=== PATIENT | male | born 1945 | race Caucasian/White ===

== ENCOUNTER → 2018-06-21 | Outpatient (CLI) | payer MEDICARE, OTHER ==
[~2018-06-21] MED LIST: ACET325T9 PO; CELE200C PO; FERR325T14 PO; LISI-338 PO; OMEP20TA63 PO; TAMS0.4C97 PO
== END | disposition home or self-care (01) ==
LOC: SURGPAT 13:34
PROVIDERS: ATTEND Orthopaedic Surgery
DX: Z01.818 Encounter for other preprocedural examination (principal); M17.11 Unilateral primary osteoarthritis, right knee
CPT/HCPCS: 36415; 85651; 87641

== ENCOUNTER 2018-07-13 05:36 | Inpatient (IN) | payer MEDICARE, OTHER ==
--- NOTE | 2018-07-12 12:57 | PDOC1 ---
History and Physical Date of Admission Date of Admission DATE: 07/13/18 Identification/Chief Complaint Chief Complaint right knee osteoarthritis pain Source Source: Chart review History of Present Illness History of Present Illness The patient is a 72 y/o male with right knee pain. He states he is ready for total knee arthroplasty. He finished formal physical therapy, which helped with his pain. He states he can walk through [employer] since physical therapy, but still cannot walk for exercise. He notes he still has knee pain daily and it interferes with his daily activities. He takes Meloxicam for pain management He had dental work done in June. Past Medical History Cardiovascular: HTN, Hyperlipidemia Renal/: Benign prostatic enlarg. Past Surgical History Past Surgical History: Appendectomy Family History Family History: Heart Disease Social History Smoke: Quit (2007) ALCOHOL: occassional Drugs: None Current Medications Current Medications Current Medications Ondansetron HCl (Zofran) 4 mg PRN Q6HRS PRN IV NAUSEA/VOMITING; Start 07/13/18 at 07:00; Stop 07/13/18 at 18:00 Fentanyl Citrate (Fentanyl 2ml Vial) 25 mcg PRN Q5MIN PRN IV MILD PAIN; Start 07/13/18 at 07:00; Stop 07/13/18 at 18:00 Fentanyl Citrate (Fentanyl 2ml Vial) 50 mcg PRN Q5MIN PRN IV MODERATE TO SEVERE PAIN; Start 07/13/18 at 07:00; Stop 07/13/18 at 18:00 Morphine Sulfate (Morphine Sulfate) 1 mg PRN Q10MIN PRN IV SEVERE PAIN; Start 07/13/18 at 07:00; Stop 07/13/18 at 18:00 Ringer's Solution 1,000 ml @ 30 mls/hr Q24H IV ; Start 07/13/18 at 07:00; Stop 07/13/18 at 18:59 Lidocaine HCl (Xylocaine-Mpf 1% 2ml Vial) 2 ml PRN 1X PRN ID IV START; Start 07/13/18 at 07:00; Stop 07/13/18 at 18:00 Hydromorphone HCl (Dilaudid) 0.5 mg PRN Q10MIN PRN IV SEV PAIN, Second choice; Start 07/13/18 at 07:00; Stop 07/13/18 at 18:00 Prochlorperazine Edisylate (Compazine) 5 mg PACU PRN PRN IV NAUSEA, MRX1; Start 07/13/18 at 07:00; Stop 07/13/18 at 18:00 Active Scripts Active Reported Ferrous Sulfate 325 Mg Tablet 1 Tab PO DAILY Flomax (Tamsulosin Hcl) 0.4 Mg Cap.er.24h 0.4 Mg PO HS Lisinopril 5 Mg Tablet 5 Mg PO DAILY Prilosec Otc (Omeprazole Magnesium) 20 Mg Tablet.dr 20 Mg PO DAILY Tylenol (Acetaminophen) 325 Mg Tablet 325 Mg PO Allergies Allergies: Coded Allergies: No Known Drug Allergies (Unverified , 06/21/18) Physical Exam General: Alert, Oriented X3, Cooperative, No acute distress HEENT: Atraumatic, EOMI Lungs: Normal air movement Heart: RRR Abdomen: Soft Extremities: No clubbing, No cyanosis, Normal pulses, Other (RIGHT KNEE: There is varus alignment. No masses. No detectable effusion. Tenderness on the medial and lateral joint lines. Range of motion is 0-125 degrees. The knee is stable to varus and valgus stress without subluxation or laxity. Muscle strength is normal (5/5) for quadriceps and hamstrings, and muscle tone is normal. The skin is normal with no scars, rashes, lesions or ulcers. Trace varicose veins. Decreased light touch sensation. Dorsalis pedis pulse is intact and capillary refill is normal. ) Skin: No rashes, No breakdown, No significant lesion Neuro: Normal speech, Sensation intact Psych/Mental Status: Mental status NL, Mood NL Images Images IMAGING REPORT Joint survey, hips knees and ankles Clinical information: Preoperative for total knee arthroplasty Comparison: None. Findings Bones: The angle between the right hip-ankle mechanical axis and the femoral shaft is 5 degrees. The angle between the left hip-ankle mechanical axis and the femoral shaft is 5 degrees. From hip to ankle, the right lower extremity is in 10 degrees of varus. From hip to ankle, the left lower extremity is in 12 degrees of varus. Joints: There is severe narrowing of the right knee joint medially. There is a degenerative loose body at the medial aspect of the right knee. There is narrowing of the left knee joint medially. The hips and ankles show minimal degenerative changes. Soft tissue: Normal. Impression: Varus alignment of the right knee. Varus alignment of the left knee. The difference between the mechanical axis and femoral shaft anatomic axis is 5 degrees bilaterally. Dictated and Signed Using Voice Recognition Software Erickson Talbot MD VTE Prophylaxis Ordered VTE Prophylaxis Devices: Yes VTE Pharmacological Prophylaxi: Yes Assessment/Plan Assessment/Plan Right knee osteoarthritis pain. He would like to proceed with total knee replacement. We will send him to the [facility] preoperatively, and he will schedule at his convenience. We discussed the risks and benefits of knee replacement including bleeding, infection, post-operative stiffness, instability, xiomara-prosthetic fracture, DVT and PE. All questions were answered. He would like to proceed with the surgery to improve his pain with activity. Follow up with me 10-14 days after surgery. JM WALKER Jul 12, 2018 12:57
[~2018-07-13] VITALS: Ht 168.9 cm; Wt 123.8 kg
[2018-07-13] VITALS (8 sets, daily range): BP systolic 117–142; BP diastolic 66–84
[~2018-07-13 05:36] MED LIST changes: -CELE200C PO
[2018-07-13] MEDS ORDERED: MORPHINE SULFATE 5 MG, KETOROLAC 30MG VIAL 30 MG, ROPIVacaine 0.5% PF 60 ML, EPINEPHrin... INT ART ONE ×5 (06:00)
[2018-07-13] MEDS ORDERED: CELECOXIB 100 MG CAPSULE. PO PRN (06:00)
[2018-07-13] MEDS ORDERED: HYDROcodone/APAP 7.5/325MG 1 TAB TABLET PO PRN (06:00)
[2018-07-13] MEDS ORDERED: TRANEXAMIC ACID 1,000 MG in IV NS 50ML -- 1ST BAG INJ ONE (06:00)
[2018-07-13] MEDS ORDERED: CELE200C PO (06:18)
[2018-07-13] MEDS ORDERED: VANCOMYCIN 1 GM VIAL. ONE ×2 (06:41→09:15)
[2018-07-13] MEDS ORDERED: TOBRAMYCIN POWDER 1.2 GM VIAL. ONE (06:41)
[2018-07-13] MEDS ORDERED: PROCHLORPERAZINE 10 MG/2 ML VIAL. IV PRN ×2 (07:00→10:00)
[2018-07-13] MEDS ORDERED: LIDOCAINE 1% PF 2 ML VIAL. ID PRN (07:00)
[2018-07-13] MEDS ORDERED: MORPHINE SULFATE 2 MG/ML VIAL. IV PRN ×2 (07:00→10:00)
[2018-07-13] MEDS ORDERED: fentaNYL PF VIAL 100 MCG/2 ML VIAL IV PRN ×3 (07:00→10:00)
[2018-07-13] MEDS ORDERED: HYDROmorphone 2 MG/ML VIAL IV PRN (07:00)
[2018-07-13] MEDS ORDERED: ONDANSETRON PF 4 MG/2 ML VIAL. IV PRN (07:00)
[2018-07-13] MEDS ORDERED: IV RINGERS,LACTATED 1000ML 1,000 ML IV SCH (07:00)
[2018-07-13] MEDS ORDERED: ROCURONIUM 50 MG/5 ML VIAL. ONE (07:01)
[2018-07-13] MEDS ORDERED: LIDOCAINE 1% PF 5 ML VIAL. ONE (07:01)
[2018-07-13] MEDS ORDERED: fentaNYL PF VIAL 100 MCG/2 ML VIAL ONE ×2 (07:01→07:33)
[2018-07-13] MEDS ORDERED: PROPOFOL 20 ML IV ONE (07:01)
[2018-07-13] MEDS ORDERED: DESFLURANE 61 TO 120 MINUTES IH ONE (07:33)
[2018-07-13] MEDS ORDERED: DEXAMETHASONE SOD PHOS 20 MG/5 ML VIAL. ONE (07:33)
[2018-07-13] MEDS ORDERED: ePHEDrine PF IN SALINE 50 MG/5 ML DISP.SYRIN IV ONE (07:41)
[2018-07-13] MEDS ORDERED: TRANEXAMIC ACID 1,000 MG in IV NS 50ML -- 2ND BAG INJ ONE (08:00)
[2018-07-13] MEDS ORDERED: MORPHINE SULFATE 10 MG/ML VIAL. ONE (08:05)
[2018-07-13] MEDS ORDERED: FAMOTIDINE 20 MG/2 ML VIAL ONE (08:08)
[2018-07-13] MEDS ORDERED: NEOSTIGMINE METHYLSULFATE 5 MG/5 ML SYRINGE. ONE (08:32)
[2018-07-13] MEDS ORDERED: ONDANSETRON PF 4 MG/2 ML VIAL. ONE (08:32)
[2018-07-13] MEDS ORDERED: GLYCOPYRROLATE 1 MG/5 ML VIAL. ONE (08:32)
[2018-07-13] MEDS ORDERED: LABETALOL 20 MG/4 ML DISP.SYRIN. IVP ONE (08:41)
--- NOTE | 2018-07-13 09:43 | PDOC4 ---
Operative Note Operative Note Date of Procedure: July 13, 2018 Pre-Op Diagnosis: Osteoarthritis right knee Post-Op Diagnosis: Osteoarthritis right knee Procedure: right total knee arthroplasty Surgeon: Elizabeth Talbot MD Forepart Rounder: Ruma Miles PA-C Anesthesia: General EBL: 100 mL Specimens Obtained: right knee bone and soft tissue Complications: none Implant Company: [employer] Drains: hemovac plus pain catheter Tourniquet time: 59 Minutes Tourniquet Pressure: 350 mm Hg Indications for Procedure: Arthritis pain unrelieved by nonoperative management. Findings: Severe osteoarthritis with bone on bone contact in all three compartments, with eburnated bone medially. Implants used: Size 7 right bicruciate stabilized Journey II BCS cobalt chrome femoral component, size 6 right Journey nonporous tibial baseplate, size 5-6 21 mm right Journey II BCS XLPE constrainedarticular insert, 38 mm oval Archana II resurfacing patellar component Procedure in Detail: The patient was identified in the preoperative holding area, and the correct right lower extremity was marked by me. The patient was taken to the operating room where the patient was anesthetized by the Department of Anesthesia. Preoperative antibiotics were given intravenously. Tranexamic acid 1 g was given intravenously for intraoperative hemostasis. A "time-out" procedure was performed. The patient was positioned supine on the operative table with a tourniquet on the upper right thigh. The right lower limb was thoroughly scrubbed, then sterile surgical prep solution was applied, and the limb was draped in sterile fashion. An impervious stockinet and adhesive drape were used such that the skin was entirely covered. An Moreno leg sy was used. The operating team wore personal exhaust-ventilated hoods. The limb exsanguinated with an Esmarch bandage, and the tourniquet was inflated. A midline skin incision was made with a scalpel using the patella and tibial tubercle as landmarks. Electrocautery was used for hemostasis. My carpenter's assistant used rake retractors. A medial parapatellar arthrotomy incision was used with extension into the distal quadriceps tendon. The patella was retracted laterally and Hohmann retractors were now used by my carpenter's assistant. Excess synovium, the menisci, and the cruciate ligaments were resected sharply. The patella was assessed and excess synovium and osteophytes around the patellar articulation were removed. The patella was measured with a caliper, cut freehand with a saw using caliper measurements, sized, and then drilled for an oval three-pegged patella component. Periarticular anesthetic injection was used in the suprapatellar pouch and distal quadriceps muscle. Whitesides's line and the transepicondylar axis were marked on the femur. An intra-medullary 5 degree cutting guide was pinned to the femur, and a distal femoral cut was made with an oscillating saw. An additional 2 mm resection was used due to the deep femoral sulcus, and deficient condyle. My carpenter's assistant held Hohmann retractors and an [facility] retractor to protect the medial and lateral collateral ligaments, the patellar tendon, the skin and the other soft tissues. A posterior referencing guide was applied with external rotation of 3 to match Whitesides line. A 5-in-1 Journey II cutting guide was then applied and pinned to the femur. The posterior, anterior, and all chamfer cuts were made with the oscillating saw. An extramedullary guide was pinned to the tibia and rotational alignment and the planned resection thickness assessed. An external alignment dianna was used to verify the planned cut in the varus-valgus plane and regarding posterior slope referencing the tibial tubercle, the tibial shaft, the ankle joint, and the second metatarsal. The upper tibia was cut made with an oscillating saw. My carpenter's assistant held Hohmann retractors and a posterior cruciate ligament retractor to protect the medial and lateral collateral ligaments, the patellar tendon, the skin, the peroneal nerve and the other soft tissues. The upper tibia was sized with a trial baseplate. The posterior compartment was cleared of osteophytes and loose bodies. Periarticular anesthetic injection was used in the posterior compartment. The box cut for a posterior stabilized component was made. A preliminary reduction was performed with a trial femur, trial tibial baseplate and trial polyethylene. Soft-tissue balancing was now performed, and extension and rotation of the alignments was checked using a guide dianna in the tibial trial and a guide pin in the femur. A medial release was required, using a 10 blade scalpel, and a Irvin elevator to elevate the medial structures from the upper medial tibia. The stability was assessed using different thicknesses of tibial articular surface to find satisfactory stability and good range of motion. The rotation of the tibial component was marked on the upper tibia. Final trial reduction was now performed verifying patella tracking and tibiofemoral stability and alignment. The tibia preparation was completed with a drill, saw, and fin punch at the previously noted rotation. The final implants were verified and opened. Outer gloves were changed by the operating team. The bone cuts were washed thoroughly with the [place] InterPulse device and dried. I asked Ms. Miles to leave the room while the cement was mixed. Two packages of Rouse + Nephew Rally MV bone cement were mixed in powdered form with Vancomycin 1gm and Tobramycin 1.2 gm, and then vacuum-mixed with the monomer, and placed into a cement gun. The cut surfaces of the bone were thoroughly dried with Prabhakar-tip suction and with laparotomy sponges for cement interdigitation. The final components were cemented into place. The knee was kept at full extension while the cement hardened, and excess cement was removed. Tranexamic acid 1 g was redosed intravenously for additional intraoperative hemostasis.The tourniquet was released, and electrocautery was used for hemostasis. A final periarticular anesthetic injection was used for pain relief. Ms. Miles scrubbed, hooded, gowned, gloved, and returned to the case. A final check of [id number] and stability was made, and the polyethylene implant final size was chosen. The polyethylene implant was secured to the tibial baseplate, and the knee was reduced a final time and range of motion and stability was confirmed. Thorough irrigation was used. Hemovac and pain catheter were used. One gram of powdered Vancomycin was placed in the arthrotomy incision prior to closure. The arthrotomy was closed with interrupted [id number] #1 PDS suture. The arthrotomy incision was then run with #1 STRATAFIX Symmetric PDS Plus Knotless suture. The subcutaneous tissues were closed with #2-0 Vicryl by my carpenter's assistant. The skin was approximated with mami by my carpenter's assistant. The skin incision was then covered and reinforced with MAREN single use negative pressure wound therapy dressing Needle and sponge counts were correct. There were no apparent complications. The patient returned to the recovery room in stable condition. ELIZABETH TALBOT MD Jul 13, 2018 09:43
[2018-07-13] MEDS ORDERED: CALCIUM CARBONATE 500 MG TAB.CHEW PO PRN (10:00)
[2018-07-13] MEDS ORDERED: 0.9 % SODIUM CHLORIDE 10 ML DISP.SYRIN. IV PRN (10:00)
[2018-07-13] MEDS ORDERED: oxyCODONE/APAP 7.5/325 1 TAB TABLET PO PRN (10:00)
[2018-07-13] MEDS ORDERED: diphenhydrAMINE HCL 25 MG CAPSULE PO PRN (10:00)
[2018-07-13] MEDS ORDERED: METOCLOPRAMIDE HCL 10 MG/2 ML VIAL. IV PRN (10:00)
[2018-07-13] MEDS ORDERED: traMADol 50 MG TABLET PO PRN ×2 (10:00)
[2018-07-13] MEDS ORDERED: DEXTROSE 50% 25 GM / 50ML DISP.SYRIN. IV PRN (10:00)
[2018-07-13] MEDS ORDERED: HYDROcodone/APAP 10/325 1 TAB TABLET PO PRN (10:00)
[2018-07-13] MEDS ORDERED: PROCHLORPERAZINE 5 MG TABLET. PO PRN (10:00)
[2018-07-13] MEDS ORDERED: ACETAMINOPHEN 325 MG TABLET. PO PRN (10:00)
[2018-07-13] MEDS ORDERED: MORPHINE SULFATE 4 MG/ML VIAL. IV PRN ×2 (10:00)
[2018-07-13] MEDS ORDERED: MORPHINE SULFATE 10 MG/ML VIAL. IV PRN (10:00)
[2018-07-13] MEDS ORDERED: ZOLPIDEM 5 MG TABLET. PO PRN (10:00)
[2018-07-13] MEDS: fentaNYL PF VIAL 100 MCG/2 ML VIAL IV PRN ×2 (10:19→10:49)
--- NOTE | 2018-07-13 10:35 | RAD ---
Two-view right knee dated 07/13/2018. No comparison available. Clinical data indication: Postop total knee replacement. FINDINGS: 2 views of right knee show interval total knee arthroplasty. Femoral and tibial components are intact. No periprosthetic fracture or malalignment. Overlying skin mami with soft tissue swelling and soft tissue gas. Suprapatellar drain in place. Postsurgical changes of the patella. There is a prominent loose body at the posterior joint space. IMPRESSION: Status post right knee arthroplasty. Electronically signed by: Darrel Thomason MD (07/13/2018 10:32 AM) [facility]
[2018-07-13] MEDS: MULTIVITAMIN with MINERAL TABLET. PO SCH (13:00)
[2018-07-13] MEDS: LISINOPRIL 5 MG TABLET. PO SCH (13:00)
[2018-07-13] MEDS: SENNOSIDES/DOCUSATE 8.6/50MG TABLET. PO SCH (13:00)
[2018-07-13] MEDS: ceFAZolin SODIUM 3 GM in IV DEXTROSE 5% 100ML 100 ML IV SCH ×2 (13:01→18:15)
[2018-07-13] MEDS: PANTOPRAZOLE 40 MG TABLET.DR. PO SCH (16:30)
[2018-07-13] MEDS: FERROUS SULFATE 325 MG TABLET. PO SCH (16:33)
[2018-07-13] MEDS: KETOROLAC 30MG VIAL 30 MG, BUPIVACAINE MPF 0.25% 20 ML, EPINEPHrine 0.5 MG in TOTAL VOL... INT ART SCH (17:26)
[2018-07-13] MEDS: IV DEXTROSE 5 %-0.45 % NACL 1,000 ML IV SCH ×2 (18:14→19:51)
[2018-07-13] MEDS: TAMSULOSIN 0.4 MG CAP.ER.24H. PO SCH (21:00)
[2018-07-13] MEDS: CELECOXIB 100 MG CAPSULE. PO SCH (21:00)
[2018-07-13] MEDS: ASPIRIN ENTERIC COATED 325 MG TABLET.DR. PO SCH (21:00)
[2018-07-14] MEDS: ceFAZolin SODIUM 3 GM in IV DEXTROSE 5% 100ML 100 ML IV SCH (00:35)
[2018-07-14 02:50] VITALS: BP 120/62
[2018-07-14] MEDS: HYDROcodone/APAP 7.5/325MG 1 TAB TABLET PO PRN ×3 (03:02→20:21)
[2018-07-14 04:41] LABS: HEMATOCRIT 31.2 % (39.0-53.0); HEMOGLOBIN 10.5 g/dL (13.0-17.5)
[2018-07-14] MEDS: KETOROLAC 30MG VIAL 30 MG, BUPIVACAINE MPF 0.25% 20 ML, EPINEPHrine 0.5 MG in TOTAL VOL... INT ART SCH (05:23)
[2018-07-14] MEDS: IV DEXTROSE 5 %-0.45 % NACL 1,000 ML IV SCH ×3 (05:51→20:13)
[2018-07-14 06:00] VITALS: BP 123/69
[2018-07-14] MEDS ORDERED: MAGNESIUM HYDROXIDE 2,400 MG/30 ML ORAL.SUSP. PO PRN (06:00)
[2018-07-14] MEDS: PANTOPRAZOLE 40 MG TABLET.DR. PO SCH (08:05)
[2018-07-14] MEDS: FERROUS SULFATE 325 MG TABLET. PO SCH ×2 (08:05→16:48)
[2018-07-14] MEDS: CELECOXIB 100 MG CAPSULE. PO SCH ×2 (08:05→20:21)
[2018-07-14] MEDS: ASPIRIN ENTERIC COATED 325 MG TABLET.DR. PO SCH ×2 (08:08→20:21)
[2018-07-14] MEDS: LISINOPRIL 5 MG TABLET. PO SCH (08:08)
[2018-07-14] MEDS: SENNOSIDES/DOCUSATE 8.6/50MG TABLET. PO SCH (08:08)
[2018-07-14] MEDS: MULTIVITAMIN with MINERAL TABLET. PO SCH (12:16)
--- NOTE | 2018-07-14 14:34 | PDOC ---
PROGRESS NOTES Subjective Subjective Doing well. Pain controlled. Objective Vital Signs Vital Signs Date Time Temp Pulse Resp B/P (MAP) Pulse Ox O2 Delivery O2 Flow Rate FiO2 07/14/18 12:16 Room Air 07/14/18 08:08 84 139/58 07/14/18 06:00 97.6 16 95 3.0 97.6 Physical Exam Postop dressing dry and intact. Hemovac and pain catheter in place. Thigh and calf soft and nontender with negative Homans sign. Good AROM toes, foot, and ankle, with no sign of neurovascular injury nor compartment syndrome. Labs Laboratory Tests Test 07/14/18 03:55 Hemoglobin 10.5 g/dL (13.0-17.5) Hematocrit 31.2 % (39.0-53.0) Mean Corpuscular Hemoglobin Concent 34 g/dL (31-37) Laboratory Tests Test 07/14/18 03:55 Hemoglobin 10.5 g/dL (13.0-17.5) Hematocrit 31.2 % (39.0-53.0) Mean Corpuscular Hemoglobin Concent 34 g/dL (31-37) Imaging Postoperative knee x-rays report reviewed, images independently reviewed. Satisfactory TKA alignment with no apparent complications. Assessment Assessment POD #1 TKA Plan Plan of Care Continue POC including PT and DVT prophylaxis. JM WALKER Jul 14, 2018 14:34
[2018-07-14] MEDS ORDERED: BISACODYL 10 MG SUPP.RECT. PR PRN (16:00)
[2018-07-14 18:23] VITALS: BP 123/47
[2018-07-14] MEDS: TAMSULOSIN 0.4 MG CAP.ER.24H. PO SCH (20:21)
[2018-07-15 04:43] LABS: HEMATOCRIT 30.5 % (39.0-53.0); HEMOGLOBIN 10.4 g/dL (13.0-17.5)
[2018-07-15] MEDS: PANTOPRAZOLE 40 MG TABLET.DR. PO SCH (04:46)
[2018-07-15] MEDS: HYDROcodone/APAP 7.5/325MG 1 TAB TABLET PO PRN ×3 (04:46→12:30)
[2018-07-15 06:03] VITALS: BP 130/61
[2018-07-15] MEDS: MULTIVITAMIN with MINERAL TABLET. PO SCH (08:23)
[2018-07-15] MEDS: CELECOXIB 100 MG CAPSULE. PO SCH ×2 (08:23→21:08)
[2018-07-15] MEDS: FERROUS SULFATE 325 MG TABLET. PO SCH ×2 (08:24→16:52)
[2018-07-15] MEDS: ASPIRIN ENTERIC COATED 325 MG TABLET.DR. PO SCH ×2 (08:24→21:07)
[2018-07-15] MEDS: SENNOSIDES/DOCUSATE 8.6/50MG TABLET. PO SCH (08:24)
[2018-07-15] MEDS: LISINOPRIL 5 MG TABLET. PO SCH (09:00)
--- NOTE | 2018-07-15 09:08 | PATHOLOGY ---
[facility] Accession Number: [id number] . 01 Material submitted: . RIGHT KNEE BONE . 01 Clinician provided ICD-10: n . 01 Clinical history: . Knee pain . 02 Diagnosis: Segments of bone and soft tissue, right total knee arthroplasty: - Advanced degenerative arthritis. . (JPM:vjm;07/14/2018) AGA/07/14/2018 . 02 Electronically signed: . Con Luna MD, Pathologist NPI- [id number] . 01 Gross description: . The specimen is received in formalin, labeled "Bashir Ibarra, right knee bone" and consists of multiple segments of bone and yellow soft tissue which includes the tibial plateau measuring 15.0 x 14.4 x 3.0 cm. The meniscus is present. Osteophytes are present. The articular surfaces display extensive eburnation measuring up to 5.0 cm. Hand Model sections are submitted in A1 following decalcification. (SDY; 07/13/2018) SYU/SYU . 02 Pathologist provided ICD-10: M17.11 . 02 CPT . 644155, [id number] Specimen Comment: A courtesy copy of this report has been sent to Specimen Comment: [phone], . Specimen Comment: Report sent to / DR SARABIA Performed at: 01 [facility] [address], [place] [id number] MD Ronny Wen MD Phone: [phone] Performed at: 02 [facility] [address] [place], [place] [id number] MD Con Luna MD Phone: [phone]
[2018-07-15] MEDS: IV DEXTROSE 5 %-0.45 % NACL 1,000 ML IV SCH ×2 (11:51→21:51)
--- NOTE | 2018-07-15 12:52 | PDOC ---
PROGRESS NOTES Subjective Subjective Pain controlled. Objective Vital Signs Vital Signs Date Time Temp Pulse Resp B/P (MAP) Pulse Ox O2 Delivery O2 Flow Rate FiO2 07/15/18 12:30 Room Air 07/15/18 06:03 98.5 79 16 130/61 (84) 96 98.5 07/14/18 06:00 3.0 Physical Exam Knee MAREN dressing with spotty drainage only, and slight bleeding from hemovac site. Calf and thigh soft and NT. Good AROM toes, foot and ankle with negative Homans and no sign of neurovascular injury nor compartment syndrome. Pain catheter and hemovac have been removed. Not yet safely ambulating with walker. Labs Laboratory Tests Test 07/14/18 03:55 07/15/18 04:30 Hemoglobin 10.5 g/dL (13.0-17.5) 10.4 g/dL (13.0-17.5) Hematocrit 31.2 % (39.0-53.0) 30.5 % (39.0-53.0) Mean Corpuscular Hemoglobin Concent 34 g/dL (31-37) 34 g/dL (31-37) Laboratory Tests Test 07/15/18 04:30 Hemoglobin 10.4 g/dL (13.0-17.5) Hematocrit 30.5 % (39.0-53.0) Mean Corpuscular Hemoglobin Concent 34 g/dL (31-37) Imaging Postoperative knee x-rays report reviewed, images independently reviewed. Satisfactory TKA alignment with no apparent complications. Assessment Assessment POD 2 after TKA Plan Plan of Care Continue PT and DVT prophylaxis. Discharge planning for tomorrow. ELIZABETH CRUZ MD Jul 15, 2018 12:52
[2018-07-15 18:42] VITALS: BP 119/62
[2018-07-15] MEDS: TAMSULOSIN 0.4 MG CAP.ER.24H. PO SCH (21:07)
[2018-07-15] MEDS: oxyCODONE/APAP 5/325 1 TAB TABLET PO PRN (21:08)
[2018-07-16 06:36] VITALS: BP 135/64
[2018-07-16] MEDS: PANTOPRAZOLE 40 MG TABLET.DR. PO SCH (07:13)
[2018-07-16] MEDS: CELECOXIB 100 MG CAPSULE. PO SCH (08:12)
[2018-07-16] MEDS: FERROUS SULFATE 325 MG TABLET. PO SCH (08:12)
[2018-07-16] MEDS: SENNOSIDES/DOCUSATE 8.6/50MG TABLET. PO SCH (08:13)
[2018-07-16] MEDS: MULTIVITAMIN with MINERAL TABLET. PO SCH (08:13)
[2018-07-16] MEDS: ASPIRIN ENTERIC COATED 325 MG TABLET.DR. PO SCH (08:13)
[2018-07-16] MEDS: oxyCODONE/APAP 5/325 1 TAB TABLET PO PRN ×2 (08:13→15:51)
[2018-07-16 08:28] VITALS: BP 146/66
[2018-07-16] MEDS: LISINOPRIL 5 MG TABLET. PO SCH (08:28)
--- NOTE | 2018-07-16 11:14 | PDOC3 ---
Discharge Summary Visit Information Date of Admission: Jul 13, 2018 Date of Discharge: Jul 16, 2018 Admitting Diagnosis: right knee osteoarthritis pain Brief Hospital Course Allergies Allergies Coded Allergies Type Severity Reaction Last Updated Verified No Known Drug Allergies 07/13/18 No Vital Signs Vital Signs Date Time Temp Pulse Resp B/P (MAP) Pulse Ox O2 Delivery O2 Flow Rate FiO2 07/16/18 09:24 Room Air 07/16/18 08:28 99 146/66 07/16/18 06:36 98.2 22 97 98.2 Lab Results Laboratory Tests Test 07/15/18 04:30 Hemoglobin 10.4 g/dL (13.0-17.5) Hematocrit 30.5 % (39.0-53.0) Mean Corpuscular Hemoglobin Concent 34 g/dL (31-37) Brief Hospital Course 72 year old male who presented with knee osteoarthritis, for elective total knee arthroplasty. The patient underwent total knee arthroplasty under general anesthesia the day of admission. Perioperative antibiotics and DVT prophylaxis were used. Postoperatively physical therapy and case management were consulted. The patient progressed and is stable for discharge. Discharge Information Condition at Discharge: Stable Follow Up: Weeks (2) Disposition/Orders: D/C to Home Scheduled Ferrous Sulfate (Ferrous Sulfate), 1 TAB PO DAILY, (Reported) Lisinopril (Lisinopril), 5 MG PO DAILY, (Reported) Omeprazole Magnesium (Prilosec Otc), 20 MG PO DAILY, (Reported) Tamsulosin Hcl (Flomax), 0.4 MG PO HS, (Reported) Scheduled PRN Celecoxib (Celebrex), 400 MG PO ONCE PRN for other, (Reported) Miscellaneous Medications Acetaminophen (Tylenol), 325 MG PO, (Reported) Patient Instructions Patient Instructions Patient Instructions Continue to WBAT with walker. Keep dressing dry and intact. F/U with [facility] in 10-14 days. Call for appointment. Physical therapy for TKA Continue DVT prophylaxis with aspirin 325mg twice daily. JM WALKER Jul 16, 2018 11:14
--- NOTE | 2018-07-16 11:31 | PDOC ---
PROGRESS NOTES Subjective Subjective Doing well. Discharge planning for today after therapy. Objective Vital Signs Vital Signs Date Time Temp Pulse Resp B/P (MAP) Pulse Ox O2 Delivery O2 Flow Rate FiO2 07/16/18 09:24 Room Air 07/16/18 08:28 99 146/66 07/16/18 06:36 98.2 22 97 98.2 07/14/18 06:00 3.0 Physical Exam MAREN intact and dry. Bleeding from Hemovac site. Calf soft and nontender with negative Arlene's sign. Good dorsiflexion and plantarflexion at foot. Peripheral pulses and light touch sensation intact. Labs Laboratory Tests Test 07/15/18 04:30 Hemoglobin 10.4 g/dL (13.0-17.5) Hematocrit 30.5 % (39.0-53.0) Mean Corpuscular Hemoglobin Concent 34 g/dL (31-37) Assessment Assessment POD #3 TKA Plan Plan of Care Discharge today to home after therapy. Continue PT for TKA. Continue ASA 325mg twice daily for DVT ppx. F/u in 10-14 days. JM WALKER Jul 16, 2018 11:31
[2018-07-16 12:03] LABS: HEMATOCRIT 31.6 % (39.0-53.0); HEMOGLOBIN 10.7 g/dL (13.0-17.5)
== END 2018-07-16 16:00 | disposition home or self-care (01) | DRG 470 ==
LOC: OPSVCIP 05:36 → 4 SOUTHEST 10:56
PROVIDERS: ADMIT Orthopaedic Surgery; ATTEND Orthopaedic Surgery
PROC: 0SRC0J9 Replacement of Right Knee Joint with Synthetic Substitute, Cemented, Open Approach (ICD-10-PCS; principal; 2018-07-13 07:10)
DX: M17.11 Unilateral primary osteoarthritis, right knee (principal); I10 Essential (primary) hypertension; E78.5 Hyperlipidemia, unspecified; Z79.899 Other long term (current) drug therapy; Z90.49 Acquired absence of other specified parts of digestive tract
CPT/HCPCS: 36415; 73560; 85014; 85018; 86850; 86900; 86901; 88305; 88311; A7015; C1713; J0171; J0690; J0780; J1100; J1885; J2270; J2405; J2704; J2710; J2795; J3010; J3260; J3370; J3490; J7030; J7120; 97116; 97150; 97530; 97535; A4461; C1769

== ENCOUNTER → 2018-11-02 | Outpatient (CLI) | payer MEDICARE, OTHER ==
[~2018-11-02] MED LIST changes: +ASPI325T11 PO; +CELE200C PO; +CRESTOR10 MG PO; +MELO15TA6 PO; +MULT1TAB52 PO; +OXYC1TAB15 PO
--- NOTE | 2018-11-02 14:18 | EKG ---
[facility] [address] [place] [address] Test Date: 2018-11-02 Test Time: 14:03:57 Pat Name: DAPHNIE GIL Department: Room: Gender: M Neonatal Surgeon: TYLOR : 1945 Requested By: ELIZABETH CRUZ Order Number: [id number] Reading MD: Ilir Buckley MD Measurements Intervals [place] Rate: 69 P: -146 DE: 144 QRS: 147 QRSD: 90 T: -179 QT: 376 QTc: 404 Interpretive Statements SINUS RHYTHM LIMB LEAD REVERSAL Electronically Signed On 11-04-2018 9:30:40 INSTRUMENT FITTER by Ilir Buckley MD
[2018-11-02 14:34] LABS: BASO # 0.1 x10^3/uL (0.0-0.2); BASO % 1 % (0-3); EOS # 0.3 x10^3/uL (0.0-0.7); EOS % 3 % (0-3); HEMATOCRIT 39.4 % (39.0-53.0); HEMOGLOBIN 12.7 g/dL (13.0-17.5); LYMPH # 2.8 x10^3/uL (1.0-4.8); LYMPH % 27 % (24-48); MEAN CORPUSCULAR HEMOGLOBIN 26 pg (25-35); MEAN CORPUSCULAR HGB CONC 32 g/dL (31-37); MEAN CORPUSCULAR VOLUME 81 fL (79-100); MONO # 0.8 x10^3/uL (0.0-1.1); MONO % 8 % (0-9); NEUT # 6.2 x10^3uL (1.8-7.7); NEUT % 60 % (31-73); PLATELET COUNT 331 x10^3/uL (140-400); RED BLOOD COUNT 4.86 x10^6/uL (4.30-5.70); RED CELL DISTRIBUTION WIDTH 16.3 % (11.5-14.5); WHITE BLOOD COUNT 10.3 x10^3/uL (4.0-11.0)
[2018-11-02 14:38] LABS: PROTHROMBIN TIME PATIENT 13.2 SEC (11.7-14.0)
[2018-11-02 14:55] LABS: BILIRUBIN,URINE NEGATIVE (NEG); CLARITY,URINE CLEAR; COLOR,URINE YELLOW; NITRITE,URINE NEGATIVE (NEG); PH,URINE 6.5; PROTEIN,URINE NEGATIVE (NEG-TRACE)
[2018-11-02 15:00] LABS: ALBUMIN 3.7 g/dL (3.4-5.0); CALCIUM 9.4 mg/dL (8.5-10.1); CREATININE 1.1 mg/dL (0.7-1.3); GFR 66.2; POTASSIUM 4.9 mmol/L (3.5-5.1)
[2018-11-02 15:14] LABS: BACTERIA,URINE 0 /HPF (0-FEW); RBC,URINE 0 /HPF (0-2); WBC,URINE 0 /HPF (0-4)
--- NOTE | 2018-11-02 15:26 | RAD ---
EXAM: Chest, 2 views. HISTORY: Preoperative evaluation. Pain. COMPARISON: None. FINDINGS: 2 views the chest are obtained. There is no infiltrate, pleural effusion or pneumothorax. The heart is normal in size. There are few calcified granulomas. IMPRESSION: No acute pulmonary finding. Electronically signed by: Marjorie Colin MD (11/02/2018 3:22 PM) [facility]
== END | disposition home or self-care (01) ==
LOC: SURGPAT 13:33
PROVIDERS: ATTEND Orthopaedic Surgery
DX: M17.12 Unilateral primary osteoarthritis, left knee (principal); J84.10 Pulmonary fibrosis, unspecified; Z88.9 Allergy status to unspecified drugs, medicaments and biological substances
CPT/HCPCS: 36415; 71046; 80048; 81001; 82040; 82306; 85025; 85610; 85651; 85730; 87641; 93005

== ENCOUNTER 2018-11-23 05:41 | Inpatient (IN) | payer MEDICARE, OTHER ==
--- NOTE | 2018-11-22 19:46 | PDOC1 ---
History and Physical Date of Admission Date of Admission 11/23/18 Identification/Chief Complaint Chief Complaint Left knee osteoarthritis pain Source Source: Chart review History of Present Illness History of Present Illness 72 year old man who had R TKA July 13, 2018. He no longer uses a cane or a walker. The right knee is his good knee and is doing great for him. The left leg is causing severe pains due to the arthritis and is causing him to limp. He has an acquired leg length discrepancy due to correction of the right leg, and despite a shoe lift on the left he still feels like he is too short on the left leg. He would like to proceed with left total knee arthroplasty in November. His primary physician is Dr. Giordano. He had a cardiology workup previously for his first knee. He reported some nausea after surgery. He turned 74 years old November 20. He wants to be able to walk well, or get in the pool by February, which should be a reasonable expectation with surgery in November. The right knee had size 7 right bicruciate stabilized Journey II BCS cobalt chrome femoral component, size 6 right Journey nonporous tibial baseplate, size 5-6 21 mm right Journey II BCS. constrained articular insert, 38 mm oval Archana II resurfacing patellar component. Past Medical History Cardiovascular: HTN, Hyperlipidemia Renal/: Benign prostatic enlarg. Past Surgical History Past Surgical History: Appendectomy Family History Family History: Heart Disease Social History ALCOHOL: occassional Drugs: None Current Medications Current Medications Current Medications Morphine Sulfate 5 mg/Ketorolac Tromethamine 30 mg/Ropivacaine 60 ml/ Epinephrine HCl 0.5 mg/Sodium Chloride 100 ml @ 100 mls/hr 1X ONCE INT ART ; Start 11/23/18 at 06:00; Stop 11/23/18 at 06:59 Meloxicam (Mobic) 15 mg 1X PREOP PRN PO PRIOR TO PROCEDURE; Start 11/23/18 at 06:00; Stop 11/23/18 at 18:00 Acetaminophen/ Hydrocodone Bitart (Lortab 7.5/325) 2 tab 1X PREOP PRN PO PRIOR TO PROCEDURE; Start 11/23/18 at 06:00; Stop 11/23/18 at 18:00 Tranexamic Acid 1000 mg/Sodium Chloride 60 ml @ 60 mls/hr 1X PERIOP ONCE INJ ; Start 11/23/18 at 06:00; Stop 11/23/18 at 06:59 Tranexamic Acid 1000 mg/Sodium Chloride 60 ml @ 60 mls/hr 1X PERIOP ONCE INJ ; Start 11/23/18 at 08:00; Stop 11/23/18 at 08:59 Cefazolin Sodium 3 gm/Dextrose 100 ml @ 200 mls/hr 1X PREOP PRN IV PRIOR TO PROCEDURE; Start 11/23/18 at 06:00; Stop 11/23/18 at 15:00 Ondansetron HCl (Zofran) 4 mg PRN Q6HRS PRN IV NAUSEA/VOMITING; Start 11/23/18 at 07:00; Stop 11/23/18 at 20:00 Fentanyl Citrate (Fentanyl 2ml Vial) 25 mcg PRN Q5MIN PRN IV MILD PAIN; Start 11/23/18 at 07:00; Stop 11/23/18 at 20:00 Fentanyl Citrate (Fentanyl 2ml Vial) 50 mcg PRN Q5MIN PRN IV MODERATE TO SEVERE PAIN; Start 11/23/18 at 07:00; Stop 11/23/18 at 20:00 Morphine Sulfate (Morphine Sulfate) 1 mg PRN Q10MIN PRN IV SEVERE PAIN; Start 11/23/18 at 07:00; Stop 11/23/18 at 20:00 Ringer's Solution 1,000 ml @ 30 mls/hr Q24H IV ; Start 11/23/18 at 07:00; Stop 11/23/18 at 18:59 Lidocaine HCl (Xylocaine-Mpf 1% 2ml Vial) 2 ml PRN 1X PRN ID PRIOR TO IV START ; Start 11/23/18 at 07:00; Stop 11/23/18 at 20:00 Hydromorphone HCl (Dilaudid) 0.5 mg PRN Q10MIN PRN IV SEV PAIN, Second choice; Start 11/23/18 at 07:00; Stop 11/23/18 at 20:00 Prochlorperazine Edisylate (Compazine) 5 mg PACU PRN PRN IV NAUSEA, MRX1; Start 11/23/18 at 07:00; Stop 11/23/18 at 20:00 Active Scripts Active Reported Multivitamins (Multivitamin) 1 Each Tablet 1 Tab PO DAILY Crestor (Rosuvastatin Calcium) 10 Mg Tablet 10 Mg PO HS Ferrous Sulfate 325 Mg Tablet 1 Tab PO DAILY Lisinopril 5 Mg Tablet 5 Mg PO DAILY Prilosec Otc (Omeprazole Magnesium) 20 Mg Tablet.dr 20 Mg PO DAILY Tylenol (Acetaminophen) 325 Mg Tablet 325 Mg PO Allergies Allergies: Coded Allergies: No Known Drug Allergies (Unverified , 11/02/18) ROS General: No: Chills, Night Sweats Eyes: No Double vision HEENT: No: Heacaches Hematological and Lymphatic: No: Bleeding Problems, Blood Clots Respiratory: No: Cough, Shortness of breath Cardiovascular: No Chest Pain, No Palpitations Gastrointestinal: No Nausea, No Vomiting, No Diarrhea, No Constipation Musculoskeletal: Yes Gait Disturbance, Yes Joint Pain Neurological: No Confusion Physical Exam General: Alert, Cooperative HEENT: Atraumatic Lungs: Normal air movement Heart: RRR Abdomen: Soft Extremities: No edema, Normal pulses, Other (The LEFT knee shows a mildly antalgic gait. There is varus alignment. No masses. No detectable effusion. Tenderness on the joint lines. Range of motion is 5-115 degrees. There is crepitus with range of motion, and pain at the extremes of motion. The knee is stable to varus and valgus stress without subluxation or laxity. Muscle strength is slightly weak for the quadriceps 4+/5 which may be due to pain or avoidance, and does not seem neurogenic, and the muscle tone and bulk is slightly decreased. The hamstring strength is 5/5. The skin is normal with no scars, rashes, lesions or ulcers. Light touch sensation is intact. No edema and no varicosities. Dorsalis pedis pulse is intact and capillary refill is normal. ) Skin: No significant lesion Neuro: Normal speech, Sensation intact Images Images Severe osteoarthritis of the left knee with myen-py-gacq contact medially, and malalignment in varus. The right knee arthroplasty appears unremarkable VTE Prophylaxis Ordered VTE Prophylaxis Devices: Yes VTE Pharmacological Prophylaxi: Yes Assessment/Plan Assessment/Plan He would like to proceed with left total knee arthroplasty. We can schedule this at a mutually convenient date in November. Risks and benefits remain the same as with the prior knee surgery, but I expect he will do well. We discussed the potential risks of infection, neurovascular injury, bleeding, blood clots, need for revision surgery, or other potential surgical or anesthetic complications. all of his questions were answered and he desires to proceed with left total knee arthroplasty. He is here today for elective surgery. ELIZABETH CRUZ MD Nov 22, 2018 19:46
[~2018-11-23] VITALS: Ht 177.8 cm; Wt 120.2 kg
[2018-11-23] VITALS (8 sets, daily range): BP systolic 129–145; BP diastolic 62–81
[~2018-11-23 05:41] MED LIST changes: -ASPI325T11 PO; -MELO15TA6 PO; -OXYC1TAB15 PO; +TOBRAMYCIN POWDER 1.2 GM VIAL. ONE; +VANCOMYCIN 1 GM VIAL. ONE
[2018-11-23] MEDS ORDERED: MELOXICAM 7.5 MG TABLET PO PRN (06:00)
[2018-11-23] MEDS ORDERED: HYDROcodone/APAP 7.5/325MG 1 TAB TABLET PO PRN (06:00)
[2018-11-23] MEDS ORDERED: ceFAZolin SODIUM 3 GM in IV DEXTROSE 5% 100ML 100 ML IV PRN (06:00)
[2018-11-23] MEDS ORDERED: TRANEXAMIC ACID 1,000 MG in IV NS 50ML -- 1ST BAG INJ ONE (06:00)
[2018-11-23] MEDS ORDERED: MORPHINE SULFATE 5 MG, KETOROLAC 30MG VIAL 30 MG, ROPIVacaine 0.5% PF 60 ML, EPINEPHrin... INT ART ONE ×5 (06:00)
[2018-11-23] MEDS ORDERED: fentaNYL PF VIAL 100 MCG/2 ML VIAL ONE ×3 (06:58→09:51)
[2018-11-23] MEDS ORDERED: GLYCOPYRROLATE 1 MG/5 ML VIAL. ONE (06:58)
[2018-11-23] MEDS ORDERED: SEVOFLURANE 61 TO 120 MINUTES. IH ONE (06:58)
[2018-11-23] MEDS ORDERED: MIDAZOLAM HCL/PF 2 MG/2 ML VIAL. ONE (06:58)
[2018-11-23] MEDS ORDERED: ROCURONIUM 50 MG/5 ML VIAL. ONE (06:58)
[2018-11-23] MEDS ORDERED: NEOSTIGMINE METHYLSULFATE 5 MG/5 ML SYRINGE. ONE (06:58)
[2018-11-23] MEDS ORDERED: DEXAMETHASONE SOD PHOS 20 MG/5 ML VIAL. ONE (06:59)
[2018-11-23] MEDS ORDERED: PROPOFOL 20 ML IV ONE (06:59)
[2018-11-23] MEDS ORDERED: LIDOCAINE 2% PF 5 ML VIAL. ONE (06:59)
[2018-11-23] MEDS ORDERED: ONDANSETRON PF 4 MG/2 ML VIAL. ONE (06:59)
[2018-11-23] MEDS ORDERED: LIDOCAINE 1% PF 2 ML VIAL. ID PRN (07:00)
[2018-11-23] MEDS ORDERED: SCOPOLAMINE 1.5MG PATCH. TD ONE (07:00)
[2018-11-23] MEDS ORDERED: PROCHLORPERAZINE 10 MG/2 ML VIAL. IV PRN (07:00)
[2018-11-23] MEDS ORDERED: ONDANSETRON PF 4 MG/2 ML VIAL. IV PRN (07:00)
[2018-11-23] MEDS ORDERED: HYDROmorphone 2 MG/ML VIAL IV PRN (07:00)
[2018-11-23] MEDS ORDERED: IV RINGERS,LACTATED 1000ML 1,000 ML IV SCH (07:00)
[2018-11-23] MEDS ORDERED: fentaNYL PF VIAL 100 MCG/2 ML VIAL IV PRN ×3 (07:00→09:30)
[2018-11-23] MEDS ORDERED: TRANEXAMIC ACID 1,000 MG in IV NS 50ML -- 2ND BAG INJ ONE (08:00)
[2018-11-23] MEDS ORDERED: ESMOLOL 100 MG/10 ML VIAL. IVP ONE (09:14)
--- NOTE | 2018-11-23 09:19 | PDOC4 ---
Operative Note Operative Note Date of Procedure: November 23, 2018 Pre-Op Diagnosis: Unilateral primary osteoarthritis, left knee. M17.12 Post-Op Diagnosis: same Procedure: left total knee arthroplasty with patella resurfacing, CPT 78642 Surgeon: Elizabeth Talbot MD Supervisor Enrobing: MIRIAM Contreras (Annie) Anesthesia: General EBL: 100 mL Specimens Obtained: left knee bone and soft tissue Complications: none Implant Company: [employer] Drains: hemovac plus pain catheter Tourniquet time: 58 Minutes Tourniquet Pressure: 350 mm Hg Indications for Procedure: Arthritis pain unrelieved by nonoperative management. Findings: Severe osteoarthritis with bone on bone contact medially with full thickness cartilage loss in the patellofemoral and lateral compartments Implants used: Size 6 left bicruciate stabilized Journey II BCS cobalt chrome femoral component, size 6 left Journey nonporous tibial baseplate, size 5 -6 15 mm left Journey II BCS XLPE articular insert, 38 mm oval Archana II resurfacing patellar component Procedure in Detail: The patient was identified in the preoperative holding area, and the correct left lower extremity was marked by me. The patient was taken to the operating room where the patient was anesthetized by the Department of Anesthesia. Preoperative antibiotics were given intravenously. Tranexamic acid 1 g was given intravenously for intraoperative hemostasis. A "time-out" procedure was performed. The patient was positioned supine on the operative table with a tourniquet on the upper left thigh. The left lower limb was thoroughly scrubbed , then sterile surgical prep solution was applied, and the limb was draped in sterile fashion. An impervious stockinet and adhesive drape were used such that the skin was entirely covered. An Moreno leg sy was used. The operating team wore personal exhaust-ventilated hoods. The limb exsanguinated with an Esmarch bandage, and the tourniquet was inflated. A midline skin incision was made with a scalpel using the patella and tibial tubercle as landmarks. Electrocautery was used for hemostasis. My assistant news director used rake retractors. A medial parapatellar arthrotomy incision was used with extension into the distal quadriceps tendon. The patella was retracted laterally and Hohmann retractors were now used by my assistant news director. Excess synovium, the menisci, and the cruciate ligaments were resected sharply. The patella was assessed and excess synovium and osteophytes around the patellar articulation were removed. The patella was measured with a caliper, cut freehand with a saw using caliper measurements, sized, and then drilled for an oval three-pegged patella component. A periarticular multimodal ropivacaine anesthetic injection was used in the suprapatellar pouch and distal quadriceps muscle. Whitesides's line and the transepicondylar axis were marked on the femur. An intra-medullary 5 degree cutting guide was pinned to the femur, and a distal femoral cut was made with an oscillating saw. No additional distal femoral resection was required. My assistant news director held Hohmann retractors and an [employer] retractor to protect the medial and lateral collateral ligaments, the patellar tendon, the skin and the other soft tissues. A posterior referencing guide was applied with external rotation of 3 to match Whitesides line. A 5-in-1 Journey II cutting guide was then applied and pinned to the femur. The posterior, anterior, and all chamfer cuts were made with the oscillating saw. An extramedullary guide was pinned to the tibia and rotational alignment and the planned resection thickness assessed. An external alignment dianna was used to verify the planned cut in the varus-valgus plane and regarding posterior slope referencing the tibial tubercle, the tibial shaft, the ankle joint, and the second metatarsal. The upper tibia was cut made with an oscillating saw. My assistant news director held Hohmann retractors and a posterior cruciate ligament retractor to protect the medial and lateral collateral ligaments, the patellar tendon, the skin, the peroneal nerve and the other soft tissues. The upper tibia was sized with a trial baseplate. The posterior compartment was cleared of osteophytes and loose bodies. The periarticular anesthetic injection was used in the posterior compartment. The box cut for a posterior stabilized component was made. A preliminary reduction was performed with a trial femur, trial tibial baseplate and trial polyethylene. Soft-tissue balancing was now performed, and extension and rotation of the alignments was checked using a guide dianna in the tibial trial and a guide pin in the femur. No additional releases were required. The stability was assessed using different thicknesses of tibial articular surface to find satisfactory stability and good range of motion. The rotation of the tibial component was marked on the upper tibia. Final trial reduction was now performed verifying patella tracking and tibiofemoral stability and alignment. The tibia preparation was completed with a drill, saw, and fin punch at the previously noted rotation. The final implants were verified and opened. Outer gloves were changed by the operating team. The bone cuts were washed thoroughly with the ViRTUAL INTERACTiVE InterPulse device and dried. Two packages of [employer] HV bone cement were mixed in powdered form with Vancomycin 1gm and Tobramycin 1.2 gm, and then vacuum-mixed with the monomer, and placed into a cement gun. The cut surfaces of the bone were thoroughly dried with Prabhakar-tip suction and with laparotomy sponges for cement interdigitation. The final components were cemented into place. The knee was kept at full extension while the cement hardened, and excess cement was removed. A Betadine lavage was used throughout the surgical exposure, and allowed to sit in contact with the exposed joint surfaces for three minutes while the cement hardened. Tranexamic acid 1 g was redosed intravenously for additional intraoperative hemostasis. The tourniquet was released, and electrocautery was used for hemostasis. A final periarticular anesthetic injection was used for pain relief. A final check of [id number] and stability was made, and the polyethylene implant final size was chosen. The polyethylene implant was secured to the tibial baseplate, and the knee was reduced a final time and range of motion and stability was confirmed. Thorough irrigation was used. Hemovac and pain catheter were used.The arthrotomy was closed with interrupted [id number] # 1 PDS suture. The arthrotomy incision was then run with #1 STRATAFIX Symmetric PDS Plus Knotless suture. The subcutaneous tissues were reapproximated initially with 2-0 PDS . Next the subcuticular layer was reapproximated in a running fashion with #3-0 Stratafix suture by my assistant news director. The skin incision was then covered and reinforced with Acticoat, followed by a MAREN single use negative pressure wound therapy dressing Soft roll and an Abdi wrap were applied. Needle and sponge counts were correct. There were no apparent complications. The patient returned to the recovery room in stable condition. ELIZABETH TALBOT MD Nov 23, 2018 09:19
[2018-11-23] MEDS ORDERED: PROCHLORPERAZINE 5 MG TABLET. PO PRN (09:30)
[2018-11-23] MEDS ORDERED: METOCLOPRAMIDE HCL 10 MG/2 ML VIAL. IV PRN (09:30)
[2018-11-23] MEDS ORDERED: MORPHINE SULFATE 4 MG/ML VIAL. IV PRN (09:30)
[2018-11-23] MEDS ORDERED: diphenhydrAMINE 50 MG/ML VIAL IV PRN (09:30)
[2018-11-23] MEDS ORDERED: ZOLPIDEM 5 MG TABLET. PO PRN (09:30)
[2018-11-23] MEDS ORDERED: MORPHINE SULFATE 2 MG/ML VIAL. IV PRN (09:30)
[2018-11-23] MEDS ORDERED: 0.9 % SODIUM CHLORIDE 10 ML DISP.SYRIN. IV PRN (09:30)
[2018-11-23] MEDS ORDERED: CALCIUM CARBONATE 500 MG TAB.CHEW PO PRN (09:30)
[2018-11-23] MEDS: fentaNYL PF VIAL 100 MCG/2 ML VIAL IV PRN ×2 (09:55→10:25)
[2018-11-23] MEDS ORDERED: MORPHINE SULFATE 2 MG/ML VIAL. ONE (10:28)
--- NOTE | 2018-11-23 10:29 | RAD ---
Indication:POST OP LEFT KNEE TECHNIQUE: 2 views of the left knee COMPARISON: 10/11/2018 FINDINGS: Status post total left knee arthroplasty. No acute fracture or dislocation. Small amount of joint effusion. Surgical drain is seen with its tip in the joint space. Small amount of emphysema is seen in the prepatellar and suprapatellar soft tissue. IMPRESSION: Expected post surgical changes from recent knee arthroplasty. Electronically signed by: Noel Mauro DO (11/23/2018 10:26 AM) [facility]
[2018-11-23] MEDS: MORPHINE SULFATE 2 MG/ML VIAL. IV PRN ×2 (10:51→11:01)
[2018-11-23] MEDS: IV NORMAL SALINE 1000ML BAG 1,000 ML IV SCH (11:00)
[2018-11-23] MEDS ORDERED: oxyCODONE/APAP 5/325 1 TAB TABLET PO PRN (11:15)
--- NOTE | 2018-11-23 11:25 | NUR ---
Arrived to the unit from PACU by bed. Alert and oriented x's 4. Left leg is elevated on pillow with ice pack. Dressing on left knee intact with MAREN, IAC, and Hemovac drain. Able to wiggle toes easily, warm to touch, and pedal pulses + bilaterally. MARCIO and SCD on right leg and JONELLE on left foot. IVF's intact and infusing. O2 at 2l per n/c and sating at 94%. Oriented to room and controls. Side rails up x's 2 with call light in reach. Cont. monitor.
[2018-11-23] MEDS: ONDANSETRON PF 4 MG/2 ML VIAL. IV SCH ×2 (12:00→18:00)
[2018-11-23] MEDS: oxyCODONE/APAP 5/325 1 TAB TABLET PO PRN ×2 (12:12→17:11)
[2018-11-23] MEDS: ONDANSETRON ODT 4 MG TAB.RAPDIS. PO SCH ×2 (12:12→17:11)
[2018-11-23] MEDS: ceFAZolin SODIUM 3 GM in IV DEXTROSE 5% 100ML 100 ML IV SCH ×2 (13:33→20:33)
[2018-11-23] MEDS: KETOROLAC 30MG VIAL 30 MG, BUPIVACAINE MPF 0.25% 20 ML, EPINEPHrine 0.5 MG in TOTAL VOL... INT ART SCH (17:11)
--- NOTE | 2018-11-23 18:08 | NUR ---
Bashir is doing well. he has been rating his pain "4" consistently. He has been medicated with Percocet 1 tab. continues to have good motion, sensation and pulses bilateral lower extremities
[2018-11-23] MEDS: ATORVASTATIN CALCIUM 40 MG TABLET. PO SCH (20:35)
[2018-11-23] MEDS: ASPIRIN ENTERIC COATED 325 MG TABLET.DR. PO SCH (20:35)
[2018-11-24] MEDS: ceFAZolin SODIUM 3 GM in IV DEXTROSE 5% 100ML 100 ML IV SCH (01:27)
[2018-11-24] MEDS: oxyCODONE/APAP 5/325 1 TAB TABLET PO PRN ×6 (01:30→19:24)
[2018-11-24 03:15] VITALS: BP 105/73
[2018-11-24] MEDS: ONDANSETRON PF 4 MG/2 ML VIAL. IV SCH ×2 (05:35)
[2018-11-24] MEDS: ONDANSETRON ODT 4 MG TAB.RAPDIS. PO SCH ×2 (05:36)
[2018-11-24] MEDS: KETOROLAC 30MG VIAL 30 MG, BUPIVACAINE MPF 0.25% 20 ML, EPINEPHrine 0.5 MG in TOTAL VOL... INT ART SCH ×2 (05:39→06:00)
[2018-11-24] MEDS: PANTOPRAZOLE 40 MG TABLET.DR. PO SCH (05:59)
[2018-11-24] MEDS ORDERED: MAGNESIUM HYDROXIDE 2,400 MG/30 ML ORAL.SUSP. PO PRN (06:00)
--- NOTE | 2018-11-24 06:10 | NUR ---
Patient reported that he got OOB by himself and ambulated to toilet, "just to see if I could." IAC cap missing, IAC tubing filled w/ blood. Clamped w/ Hemostat. Percocet given. Call light in reach, Reminded to call for assistance to go to toilet.
[2018-11-24 06:35] VITALS: BP 132/64
[2018-11-24 08:07] LABS: HEMATOCRIT 33.9 % (39.0-53.0); HEMOGLOBIN 10.8 g/dL (13.0-17.5); RED BLOOD COUNT 4.15 x10^6/uL (4.30-5.70); WHITE BLOOD COUNT 14.4 x10^3/uL (4.0-11.0)
[2018-11-24] MEDS: SENNOSIDES/DOCUSATE 8.6/50MG TABLET. PO SCH (08:49)
[2018-11-24] MEDS: MELOXICAM 7.5 MG TABLET PO SCH (08:50)
[2018-11-24] MEDS: ASPIRIN ENTERIC COATED 325 MG TABLET.DR. PO SCH ×2 (08:50→20:18)
[2018-11-24] MEDS: MULTIVITAMIN with MINERAL TABLET. PO SCH (08:50)
[2018-11-24] MEDS: LISINOPRIL 5 MG TABLET. PO SCH (08:54)
[2018-11-24] MEDS: IV NORMAL SALINE 1000ML BAG 1,000 ML IV SCH ×2 (11:00→19:19)
[2018-11-24] MEDS ORDERED: ONDANSETRON PF 4 MG/2 ML VIAL. IV PRN (12:00)
[2018-11-24] MEDS ORDERED: ONDANSETRON ODT 4 MG TAB.RAPDIS. PO PRN (12:00)
[2018-11-24] MEDS ORDERED: BISACODYL 10 MG SUPP.RECT. PR PRN (16:00)
--- NOTE | 2018-11-24 17:01 | PDOC ---
PROGRESS NOTES Subjective Subjective Doing well. Pain controlled with medication. No major complaints. Objective Vital Signs Vital Signs Date Time Temp Pulse Resp B/P (MAP) Pulse Ox O2 Delivery O2 Flow Rate FiO2 11/24/18 12:44 Room Air 11/24/18 08:54 87 131/65 11/24/18 06:50 20 11/24/18 06:35 97.4 95 97.4 11/23/18 15:15 2.0 Physical Exam Pain catheter and Hemovac been removed. Thigh and calf are soft. The dressing is dry and intact. Alignment is satisfactory. Good active range of motion of the ankle and foot, with no evidence of neurovascular injury, no compartment syndrome, no evidence of DVT. Labs Laboratory Tests Test 11/24/18 07:50 White Blood Count 14.4 x10^3/uL (4.0-11.0) Red Blood Count 4.15 x10^6/uL (4.30-5.70) Hemoglobin 10.8 g/dL (13.0-17.5) Hematocrit 33.9 % (39.0-53.0) Mean Corpuscular Volume 82 fL (79-100) Mean Corpuscular Hemoglobin 26 pg (25-35) Mean Corpuscular Hemoglobin Concent 32 g/dL (31-37) Red Cell Distribution Width 17.0 % (11.5-14.5) Platelet Count 266 x10^3/uL (140-400) Laboratory Tests Test 11/24/18 07:50 White Blood Count 14.4 x10^3/uL (4.0-11.0) Red Blood Count 4.15 x10^6/uL (4.30-5.70) Hemoglobin 10.8 g/dL (13.0-17.5) Hematocrit 33.9 % (39.0-53.0) Mean Corpuscular Volume 82 fL (79-100) Mean Corpuscular Hemoglobin 26 pg (25-35) Mean Corpuscular Hemoglobin Concent 32 g/dL (31-37) Red Cell Distribution Width 17.0 % (11.5-14.5) Platelet Count 266 x10^3/uL (140-400) Imaging Report reviewed, images independently reviewed. Satisfactory total knee arthroplasty without evidence of complications. Indication:POST OP LEFT KNEE TECHNIQUE: 2 views of the left knee COMPARISON: 10/11/2018 FINDINGS: Status post total left knee arthroplasty. No acute fracture or dislocation. Small amount of joint effusion. Surgical drain is seen with its tip in the joint space. Small amount of emphysema is seen in the prepatellar and suprapatellar soft tissue. IMPRESSION: Expected post surgical changes from recent knee arthroplasty. Electronically signed by: Noel Sheppard DO (11/23/2018 10:26 AM) [facility] DICTATED and SIGNED BY: NOEL SHEPPARD DO DATE: 11/23/18 1026 Assessment Assessment POD#1 after TKA. Elevated white blood cell count, we will observe. This could be due to perioperative steroids given for prevention of postoperative nausea and vomiting Plan Plan of Care Continue DVT prophylaxis. Physical therapy for strengthening, range of motion and gait training. ELIZABETH CRUZ MD Nov 24, 2018 17:01
--- NOTE | 2018-11-24 17:21 | NUR ---
tello states that he had the flu shot prior to his last knee surgery in Jul 2018
[2018-11-24 17:44] VITALS: BP 113/86
[2018-11-24] MEDS: ATORVASTATIN CALCIUM 40 MG TABLET. PO SCH (20:18)
--- NOTE | 2018-11-24 22:21 | NUR ---
Patient found OOB w/o using the walker. States "the call light cord got pulled out of the wall and I couldn't control the TV." Emergency assist audio ramey did not alarm, which is what happens when call light out of wall. Assisted back to bed, call light in reach. Instructed to call for help and not get OOB by himself. Saline lock DC'd per request.
[2018-11-25] MEDS: oxyCODONE/APAP 5/325 1 TAB TABLET PO PRN ×5 (03:53→21:24)
[2018-11-25 04:23] LABS: HEMATOCRIT 30.8 % (39.0-53.0)
[2018-11-25 05:31] VITALS: BP 107/62
[2018-11-25] MEDS: MELOXICAM 7.5 MG TABLET PO SCH (07:54)
[2018-11-25] MEDS: PANTOPRAZOLE 40 MG TABLET.DR. PO SCH (07:54)
[2018-11-25] MEDS: MULTIVITAMIN with MINERAL TABLET. PO SCH (07:54)
[2018-11-25] MEDS: ASPIRIN ENTERIC COATED 325 MG TABLET.DR. PO SCH ×2 (07:54→21:24)
[2018-11-25] MEDS: SENNOSIDES/DOCUSATE 8.6/50MG TABLET. PO SCH (07:54)
[2018-11-25] MEDS: LISINOPRIL 5 MG TABLET. PO SCH (07:57)
--- NOTE | 2018-11-25 13:02 | PDOC ---
PROGRESS NOTES Subjective Subjective No c/o Objective Vital Signs Vital Signs Date Time Temp Pulse Resp B/P (MAP) Pulse Ox O2 Delivery O2 Flow Rate FiO2 11/25/18 12:02 Room Air 11/25/18 07:57 83 130/59 11/25/18 05:31 99.7 20 93 99.7 11/23/18 15:15 2.0 Physical Exam Aquacel dressing dry. Pain catheter and hemovac have been removed. Minimal erythema/warmth. Calf soft, NT, and Homans neg. Good AROM for ankle DF/PF. Not yet safely ambulating with walker. Still requires max assist and gait belt by nurse, aide or therapist to get from bed or chair to walker. Labs Laboratory Tests Test 11/24/18 07:50 11/25/18 03:50 White Blood Count 14.4 x10^3/uL (4.0-11.0) Red Blood Count 4.15 x10^6/uL (4.30-5.70) Hemoglobin 10.8 g/dL (13.0-17.5) 10.0 g/dL (13.0-17.5) Hematocrit 33.9 % (39.0-53.0) 30.8 % (39.0-53.0) Mean Corpuscular Volume 82 fL (79-100) Mean Corpuscular Hemoglobin 26 pg (25-35) Mean Corpuscular Hemoglobin Concent 32 g/dL (31-37) 33 g/dL (31-37) Red Cell Distribution Width 17.0 % (11.5-14.5) Platelet Count 266 x10^3/uL (140-400) Laboratory Tests Test 11/25/18 03:50 Hemoglobin 10.0 g/dL (13.0-17.5) Hematocrit 30.8 % (39.0-53.0) Mean Corpuscular Hemoglobin Concent 33 g/dL (31-37) Assessment Assessment POD 2 TKA Plan Plan of Care Continue PT for strengthening and for safe ambulation. Continue DVT prophylaxis. Discharge planning for tomorrow. ELIZABETH CRUZ MD Nov 25, 2018 13:02
[2018-11-25 18:00] VITALS: BP 109/62
[2018-11-25] MEDS: ATORVASTATIN CALCIUM 40 MG TABLET. PO SCH (21:24)
[2018-11-26 06:15] VITALS: BP 133/65
[2018-11-26] MEDS: PANTOPRAZOLE 40 MG TABLET.DR. PO SCH ×2 (06:19→08:01)
[2018-11-26 07:49] LABS: BASO # 0.1 x10^3/uL (0.0-0.2); BASO % 1 % (0-3); EOS # 0.4 x10^3/uL (0.0-0.7); EOS % 3 % (0-3); HEMATOCRIT 30.3 % (39.0-53.0); HEMOGLOBIN 9.9 g/dL (13.0-17.5); LYMPH # 2.2 x10^3/uL (1.0-4.8); LYMPH % 18 % (24-48); MEAN CORPUSCULAR HEMOGLOBIN 27 pg (25-35); MEAN CORPUSCULAR HGB CONC 33 g/dL (31-37); MEAN CORPUSCULAR VOLUME 82 fL (79-100); MONO # 1.1 x10^3/uL (0.0-1.1); MONO % 10 % (0-9); NEUT # 7.9 x10^3uL (1.8-7.7); NEUT % 68 % (31-73); PLATELET COUNT 226 x10^3/uL (140-400); RED CELL DISTRIBUTION WIDTH 16.8 % (11.5-14.5); WHITE BLOOD COUNT 11.7 x10^3/uL (4.0-11.0)
[2018-11-26] MEDS: SENNOSIDES/DOCUSATE 8.6/50MG TABLET. PO SCH (08:01)
[2018-11-26] MEDS: MELOXICAM 7.5 MG TABLET PO SCH (08:01)
[2018-11-26] MEDS: MULTIVITAMIN with MINERAL TABLET. PO SCH (08:01)
[2018-11-26 08:02] VITALS: BP 127/64
[2018-11-26] MEDS: ASPIRIN ENTERIC COATED 325 MG TABLET.DR. PO SCH (08:02)
[2018-11-26] MEDS: LISINOPRIL 5 MG TABLET. PO SCH (08:02)
[2018-11-26] MEDS: oxyCODONE/APAP 5/325 1 TAB TABLET PO PRN ×2 (08:02→11:59)
--- NOTE | 2018-11-26 12:21 | PDOC ---
PROGRESS NOTES Subjective Subjective No complaints. Planning on discharge today to home. Objective Vital Signs Vital Signs Date Time Temp Pulse Resp B/P (MAP) Pulse Ox O2 Delivery O2 Flow Rate FiO2 11/26/18 11:59 Room Air 11/26/18 08:02 127/64 11/26/18 06:15 98.4 80 94 98.4 11/25/18 21:24 18 11/23/18 15:15 2.0 Physical Exam MAREN intact and dry. Good AROM ankle. Calf soft and nontender. Minimal warmth or erythema. Labs Laboratory Tests Test 11/25/18 03:50 11/26/18 06:18 11/26/18 07:11 Hemoglobin 10.0 g/dL (13.0-17.5) 9.9 g/dL (13.0-17.5) Hematocrit 30.8 % (39.0-53.0) 30.3 % (39.0-53.0) Mean Corpuscular Hemoglobin Concent 33 g/dL (31-37) 33 g/dL (31-37) Glucose (Fingerstick) 120 mg/dL (70-99) White Blood Count 11.7 x10^3/uL (4.0-11.0) Red Blood Count 3.70 x10^6/uL (4.30-5.70) Mean Corpuscular Volume 82 fL (79-100) Mean Corpuscular Hemoglobin 27 pg (25-35) Red Cell Distribution Width 16.8 % (11.5-14.5) Platelet Count 226 x10^3/uL (140-400) Neutrophils (%) (Auto) 68 % (31-73) Lymphocytes (%) (Auto) 18 % (24-48) Monocytes (%) (Auto) 10 % (0-9) Eosinophils (%) (Auto) 3 % (0-3) Basophils (%) (Auto) 1 % (0-3) Neutrophils # (Auto) 7.9 x10^3uL (1.8-7.7) Lymphocytes # (Auto) 2.2 x10^3/uL (1.0-4.8) Monocytes # (Auto) 1.1 x10^3/uL (0.0-1.1) Eosinophils # (Auto) 0.4 x10^3/uL (0.0-0.7) Basophils # (Auto) 0.1 x10^3/uL (0.0-0.2) Laboratory Tests Test 11/26/18 06:18 11/26/18 07:11 Glucose (Fingerstick) 120 mg/dL (70-99) White Blood Count 11.7 x10^3/uL (4.0-11.0) Red Blood Count 3.70 x10^6/uL (4.30-5.70) Hemoglobin 9.9 g/dL (13.0-17.5) Hematocrit 30.3 % (39.0-53.0) Mean Corpuscular Volume 82 fL (79-100) Mean Corpuscular Hemoglobin 27 pg (25-35) Mean Corpuscular Hemoglobin Concent 33 g/dL (31-37) Red Cell Distribution Width 16.8 % (11.5-14.5) Platelet Count 226 x10^3/uL (140-400) Neutrophils (%) (Auto) 68 % (31-73) Lymphocytes (%) (Auto) 18 % (24-48) Monocytes (%) (Auto) 10 % (0-9) Eosinophils (%) (Auto) 3 % (0-3) Basophils (%) (Auto) 1 % (0-3) Neutrophils # (Auto) 7.9 x10^3uL (1.8-7.7) Lymphocytes # (Auto) 2.2 x10^3/uL (1.0-4.8) Monocytes # (Auto) 1.1 x10^3/uL (0.0-1.1) Eosinophils # (Auto) 0.4 x10^3/uL (0.0-0.7) Basophils # (Auto) 0.1 x10^3/uL (0.0-0.2) Imaging POD #3 TKA Assessment Assessment Discharge planning for today. Continue PT and DVT prophylaxis. F/U 10-14 days in office. ELIZABETH RCUZ MD Nov 26, 2018 12:21
[2018-11-26] MEDS ORDERED: OXYC1TAB15 PO (12:25)
[2018-11-26] MEDS ORDERED: ASPI325T11 PO (12:25)
--- NOTE | 2018-11-26 12:27 | PDOC3 ---
Discharge Summary Visit Information Date of Admission: Nov 23, 2018 Date of Discharge: Nov 26, 2018 Final Diagnosis osteoarthritis left knee Brief Hospital Course Allergies Allergies Coded Allergies Type Severity Reaction Last Updated Verified No Known Drug Allergies 11/23/18 No Vital Signs Vital Signs Date Time Temp Pulse Resp B/P (MAP) Pulse Ox O2 Delivery O2 Flow Rate FiO2 11/26/18 11:59 Room Air 11/26/18 08:02 127/64 11/26/18 06:15 98.4 80 94 98.4 11/25/18 21:24 18 Lab Results Laboratory Tests Test 11/25/18 03:50 11/26/18 06:18 11/26/18 07:11 Hemoglobin 10.0 g/dL (13.0-17.5) 9.9 g/dL (13.0-17.5) Hematocrit 30.8 % (39.0-53.0) 30.3 % (39.0-53.0) Mean Corpuscular Hemoglobin Concent 33 g/dL (31-37) 33 g/dL (31-37) Glucose (Fingerstick) 120 mg/dL (70-99) White Blood Count 11.7 x10^3/uL (4.0-11.0) Red Blood Count 3.70 x10^6/uL (4.30-5.70) Mean Corpuscular Volume 82 fL (79-100) Mean Corpuscular Hemoglobin 27 pg (25-35) Red Cell Distribution Width 16.8 % (11.5-14.5) Platelet Count 226 x10^3/uL (140-400) Neutrophils (%) (Auto) 68 % (31-73) Lymphocytes (%) (Auto) 18 % (24-48) Monocytes (%) (Auto) 10 % (0-9) Eosinophils (%) (Auto) 3 % (0-3) Basophils (%) (Auto) 1 % (0-3) Neutrophils # (Auto) 7.9 x10^3uL (1.8-7.7) Lymphocytes # (Auto) 2.2 x10^3/uL (1.0-4.8) Monocytes # (Auto) 1.1 x10^3/uL (0.0-1.1) Eosinophils # (Auto) 0.4 x10^3/uL (0.0-0.7) Basophils # (Auto) 0.1 x10^3/uL (0.0-0.2) Laboratory Tests Test 11/26/18 06:18 11/26/18 07:11 Glucose (Fingerstick) 120 mg/dL (70-99) White Blood Count 11.7 x10^3/uL (4.0-11.0) Red Blood Count 3.70 x10^6/uL (4.30-5.70) Hemoglobin 9.9 g/dL (13.0-17.5) Hematocrit 30.3 % (39.0-53.0) Mean Corpuscular Volume 82 fL (79-100) Mean Corpuscular Hemoglobin 27 pg (25-35) Mean Corpuscular Hemoglobin Concent 33 g/dL (31-37) Red Cell Distribution Width 16.8 % (11.5-14.5) Platelet Count 226 x10^3/uL (140-400) Neutrophils (%) (Auto) 68 % (31-73) Lymphocytes (%) (Auto) 18 % (24-48) Monocytes (%) (Auto) 10 % (0-9) Eosinophils (%) (Auto) 3 % (0-3) Basophils (%) (Auto) 1 % (0-3) Neutrophils # (Auto) 7.9 x10^3uL (1.8-7.7) Lymphocytes # (Auto) 2.2 x10^3/uL (1.0-4.8) Monocytes # (Auto) 1.1 x10^3/uL (0.0-1.1) Eosinophils # (Auto) 0.4 x10^3/uL (0.0-0.7) Basophils # (Auto) 0.1 x10^3/uL (0.0-0.2) Brief Hospital Course 73 old who presented with knee osteoarthritis, for elective total knee arthroplasty. The patient underwent total knee arthroplasty under general anesthesia the day of admission. Perioperative antibiotics and DVT prophylaxis were used. Postoperatively physical therapy and case management were consulted. The patient progressed and is stable for discharge. Discharge Information Condition at Discharge: Stable Follow Up: Weeks Disposition/Orders: D/C to Home Scheduled Ferrous Sulfate (Ferrous Sulfate), 1 TAB PO DAILY, (Reported) Lisinopril (Lisinopril), 5 MG PO DAILY, (Reported) Multivitamin (Multivitamins), 1 TAB PO DAILY, (Reported) Omeprazole Magnesium (Prilosec Otc), 20 MG PO DAILY, (Reported) Rosuvastatin Calcium (Crestor), 10 MG PO HS, (Reported) Miscellaneous Medications Acetaminophen (Tylenol), 325 MG PO, (Reported) Patient Instructions Patient Instructions Patient Instructions Continue to WBAT with walker. Keep dressing dry and intact. F/U with Dr. Talbot in 10-14 days. Call for appointment if not already scheduled. Physical therapy for TKA Continue DVT prophylaxis with aspirin. ELIZABETH TALBOT MD Nov 26, 2018 12:27
[2018-11-26] MEDS ORDERED: MELO15TA6 PO (12:34)
--- NOTE | 2018-11-26 14:35 | NUR ---
Patient left the building around 1430 in a wheelchair with his . Discharge education was completed by this nurse, therapy, and his doctor. No concerns noted upon discharge. Scripts given to patient. Extra dressings given to patient for hemovac site. MAREN instructions completed with him and his with no concerns noted.
--- NOTE | 2018-11-29 13:08 | PATHOLOGY ---
[facility] Accession Number: [id number] . 01 Material submitted: . LEFT KNEE BONE AND SOFT TISSUE . 01 Clinical history: . Osteoarthritis . 02 Diagnosis: "Left knee bone and soft tissue", removal: - Degenerative osteoarthritis. - Portion of synovium with focal degenerative changes. . (SKM:mml; 11/25/2018) QLM/11/25/2018 . 02 Electronically signed: . Ezequiel Kirkland MD, Pathologist NPI- [id number] . 01 Gross description: . The specimen is received in formalin, labeled "Bashir Ibarra, left knee bone and soft tissue", are multiple segments of garcia-brown bones, de jesus-white fibrous, yellow lobulated and garcia-white rubbery tissues consisting of recognizable portion of tibia plateau, patella, meniscus measuring 12.0 x 9.0 x 3.0 cm in aggregate. Peripheral osteophytes and eburnation is identified. [employer] tissue is submitted in A1 after decalcification. ([facility]; 11/23/2018) [facility] . 02 Pathologist provided ICD-10: M17.12, M67.862 . 02 CPT . 838875, 517818 Specimen Comment: A courtesy copy of this report has been sent to Specimen Comment: [phone], . Specimen Comment: Report sent to / DR SARABIA Performed at: 01 [facility] [address], [place] [id number] MD Ronny Wen MD Phone: [phone] Performed at: 02 [facility] [address], [place] [id number] MD Con Luna MD Phone: [phone]
== END 2018-11-26 14:30 | disposition home or self-care (01) | DRG 470 ==
LOC: OPSVCIP 05:41 → 4 SOUTHEST 11:25
PROVIDERS: ADMIT Orthopaedic Surgery; ATTEND Orthopaedic Surgery
PROC: 0SRD0J9 Replacement of Left Knee Joint with Synthetic Substitute, Cemented, Open Approach (ICD-10-PCS; principal; 2018-11-23 07:10)
DX: M17.12 Unilateral primary osteoarthritis, left knee (principal); I10 Essential (primary) hypertension; M21.70 Unequal limb length (acquired), unspecified site; N40.0 Benign prostatic hyperplasia without lower urinary tract symptoms; D72.829 Elevated white blood cell count, unspecified; E78.5 Hyperlipidemia, unspecified; Z96.651 Presence of right artificial knee joint; Z82.49 Family history of ischemic heart disease and other diseases of the circulatory system; Z90.49 Acquired absence of other specified parts of digestive tract
CPT/HCPCS: 36415; 73560; 82962; 85014; 85018; 85025; 85027; 86850; 86900; 86901; 88305; 88311; A7015; C1713; J0171; J0690; J1100; J1885; J2001; J2250; J2270; J2405; J2704; J2710; J2795; J3010; J3260; J3370; J3490; J7030; J7120; Q0162; 97116; 97150; 97530; 97535; A4461; C1769

== ENCOUNTER → 2019-03-23 | Day surgery (SDC) | payer MEDICARE, OTHER ==
[~2019-03-23] MED LIST changes: +ASPI325T11 PO; +HYDROmorphone 2 MG/ML VIAL IV PRN; +IV RINGERS,LACTATED 1000ML 1,000 ML IV SCH; +MELO15TA6 PO; +MORPHINE SULFATE 2 MG/ML VIAL. IV PRN; +ONDANSETRON PF 4 MG/2 ML VIAL. IV PRN; +OXYC1TAB15 PO; +PROCHLORPERAZINE 10 MG/2 ML VIAL. IV PRN; +PROPOFOL 20 ML IV ONE; -TOBRAMYCIN POWDER 1.2 GM VIAL. ONE; -VANCOMYCIN 1 GM VIAL. ONE; +fentaNYL PF VIAL 100 MCG/2 ML VIAL IV PRN
[2019-03-23 08:28] VITALS: BP 163/75
== END ==
LOC: ENDOS 06:31
PROVIDERS: ATTEND Internal Medicine Gastroenterology
DX: Z12.11 Encounter for screening for malignant neoplasm of colon (principal); K57.30 Diverticulosis of large intestine without perforation or abscess without bleeding; K64.0 First degree hemorrhoids; K21.9 Gastro-esophageal reflux disease without esophagitis; E78.5 Hyperlipidemia, unspecified; F15.90 Other stimulant use, unspecified, uncomplicated; Z86.010 Personal history of colon polyps; Z72.89 Other problems related to lifestyle; Z87.891 Personal history of nicotine dependence
CPT/HCPCS: G0105; J2704; 45378